=== PATIENT | male | born 1985 | race Caucasian/White ===

== ENCOUNTER 2016-11-25 07:59 | Observation (INO) | payer OTHER ==
--- NOTE | 2016-11-25 09:14 | EDPHY ---
H & P Stated Complaint: HEMORRHOID X 1 WEEK NOT RESPONDING TO OTC CREAMS Time Seen by Provider: 11/25/16 09:00 HPI/ROS: CHIEF COMPLAINT: rectal pain HISTORY OF PRESENT ILLNESS: 31-year-old male presents emergency department complaining of rectal pain x1 week that is been significantly worsening over the last 4 days. Patient reports a history of hemorrhoids, he states he thinks it started as a hemorrhoid and then something larger grew next to it. He states the pain is worse with movement and bowel movements. He denies fevers, no nausea or vomiting. Patient reports a history of hemorrhoids that he is usually able to get to go away. Patient reports a history chronic abdominal pain for which is being worked, he has been seen by multiple gastroenterologists. REVIEW OF SYSTEMS: A comprehensive 10 point review of systems is otherwise negative aside from elements mentioned in the history of present illness. Source: Patient Exam Limitations: No limitations - Personal History Current Tetanus/Diphtheria Vaccine: Yes - Medical/Surgical History Hx Asthma: No Hx Chronic Respiratory Disease: No Hx Diabetes: No Hx Cardiac Disease: No Hx Renal Disease: No Hx Cirrhosis: No Hx Alcoholism: No Hx HIV/AIDS: No Hx Splenectomy or Spleen Trauma: No Other PMH: APPY - Social History Smoking Status: Never smoked - Physical Exam Exam: Physical Exam Gen: Alert and Oriented, NAD HEENT: PERRL, moist mucous membranes NECK: no meningismus CV: regular rate and regular rhythm PULM: CTAB, no wheezes ABDOMEN: soft, non tender to palpation, BS present RECTAL:2cm x2cm area of induration, erythema, pain, swelling at 7pm position extending into rectal vault. 1cm of surrounding erythema, no bleeding, no drainage. BACK: No CVA tenderness NEURO: Neurologically grossly intact EXTREMITIES: normal appearing SKIN: no rash or break in skin on exposed skin PSYCH: answers questions appropriately. Constitutional: Initial Vital Signs Temperature (C) 36.4 C 11/25/16 08:02 Heart Rate 107 H 11/25/16 08:02 Respiratory Rate 20 11/25/16 08:02 Blood Pressure 117/86 H 11/25/16 08:02 O2 Sat (%) 97 11/25/16 08:02 O2 Delivery Mode Room Air Allergies/Adverse Reactions: amoxicillin [Amoxicillin] Allergy (Verified 11/25/16 08:01) Penicillins Allergy (Verified 11/25/16 08:01) Home Medications: Medication Instructions Recorded Anusol 11/25/16 KLONOPIN 11/25/16 Medical Decision Making - Diagnostics Imaging: Imaging Impressions Abdomen CT 11/25/16 09:53 Impression: 1. Small perianal rim-enhancing fluid collection, possibly abscess. 2. No acute process within the intraperitoneal space. 3. Mild constipation. Otherwise, normal bowel pattern. Findings discussed with emergency department nurse, Charity Lowe, [employer] on November 25, 2016 at 1050 hours. ED Course/Re-evaluation: IV established, CBC, chemistry panel, CT abdomen pelvis with IV contrast ordered after discussing the case with Dr. Li. CBC is mildly elevated at 11.3 with a left shift. Normal chemistry panel. 920am- Dr. Li at bedside. 11am- patient back from CT scan and CT results show a perirectal abscess. Dr. Li contacted with results. 1115am-Dr. Li at bedside. He is going to take the patient to surgery. Cefoxitin has been ordered. - Data Points Laboratory Results: Laboratory Results 11/25/16 09:15 11/25/16 09:15 11/25/16 11/25/16 09:15 09:15 WBC 11.32 10^3/uL H 10^3/uL (3.80-9.50) RBC 5.23 10^6/uL 10^6/uL (4.40-6.38) Hgb 16.0 g/dL g/dL (13.7-17.5) Hct 46.4 % % (40.0-51.0) MCV 88.7 fL fL (81.5-99.8) MCH 30.6 pg pg (27.9-34.1) MCHC 34.5 g/dL g/dL (32.4-36.7) RDW 11.7 % % (11.5-15.2) Plt Count 231 10^3/uL 10^3/uL (150-400) MPV 11.7 fL fL (8.7-11.7) Neut % (Auto) 86.8 % H % (39.3-74.2) Lymph % (Auto) 8.7 % L % (15.0-45.0) Crockett % (Auto) 3.6 % L % (4.5-13.0) Eos % (Auto) 0.2 % L % (0.6-7.6) Baso % (Auto) 0.4 % % (0.3-1.7) Nucleat RBC Rel Count 0.0 % % (0.0-0.2) Absolute Neuts (auto) 9.83 10^3/uL H 10^3/uL (1.70-6.50) Absolute Lymphs (auto) 0.98 10^3/uL L 10^3/uL (1.00-3.00) Absolute Monos (auto) 0.41 10^3/uL 10^3/uL (0.30-0.80) Absolute Eos (auto) 0.02 10^3/uL L 10^3/uL (0.03-0.40) Absolute Basos (auto) 0.05 10^3/uL 10^3/uL (0.02-0.10) Absolute Nucleated RBC 0.00 10^3/uL 10^3/uL (0-0.01) Immature Gran % 0.3 % % (0.0-1.1) Immature Gran # 0.03 10^3/uL 10^3/uL (0.00-0.10) Sodium 141 mEq/L mEq/L (134-144) Potassium 4.0 mEq/L mEq/L (3.5-5.2) Chloride 100 mEq/L mEq/L (97-110) Carbon Dioxide 25 mEq/l mEq/l (22-31) Anion Gap 16 mEq/L mEq/L (8-16) BUN 13 mg/dL mg/dL (7-23) Creatinine 0.8 mg/dL mg/dL (0.7-1.3) Estimated GFR > 60 Glucose 99 mg/dL mg/dL (70-100) Calcium 9.8 mg/dL mg/dL (8.5-10.4) Medications Given: Discontinued Medications Sodium Chloride (Ns) 1,000 mls @ 0 mls/hr IV ONCE ONE PRN Reason: Wide Open Stop: 11/25/16 09:20 Last Admin: 11/25/16 09:15 Dose: 1,000 mls Sodium Chloride (Ns) 1,000 mls @ 0 mls/hr IV ONCE ONE PRN Reason: Wide Open Stop: 11/25/16 09:58 Last Admin: 11/25/16 09:58 Dose: 1,000 mls Departure - Departure Disposition: To OP Cath/Surgery Clinical Impression: Perirectal abscess Condition: Fair Referrals: NONE *PRIMARY CARE P,. [Primary Care Provider] - As per Instructions
[2016-11-25] MEDS ORDERED: NS 1,000 ML IV ONE ×2 (09:19→09:57)
[2016-11-25 09:23] LABS: % IMMATURE GRANULYOCYTES 0.3 % (0.0-1.1); ABSOLUTE IMMATURE GRANULOCYTES 0.03 10^3/uL (0.00-0.10); ADD DIFF? NO; ADD MORPH? NO; ADD SCAN? NO; ATYPICAL LYMPHOCYTE FLAG 0 (0-99); FRAGMENT RBC FLAG 0 (0-99); HEMATOCRIT 46.4 % (40.0-51.0); LEFT SHIFT FLG 0 (0-99); LIPEMIA HEMOLYSIS FLAG 90 (0-99); MEAN CELL HEMOGLOBIN 30.6 pg (27.9-34.1); MEAN CELL HEMOGLOBIN CONCENTR. 34.5 g/dL (32.4-36.7); MEAN CELL VOLUME 88.7 fL (81.5-99.8); MEAN PLATELET VOLUME 11.7 fL (8.7-11.7); PLATELET CLUMPS FLAG 10 (0-99); PLATELET COUNT 231 10^3/uL (150-400); RED BLOOD CELL COUNT 5.23 10^6/uL (4.40-6.38); RED CELL DISTRIBUTION WIDTH 11.7 % (11.5-15.2)
[2016-11-25 09:54] LABS: ANION GAP 16 mEq/L (8-16); CALCIUM 9.8 mg/dL (8.5-10.4); CARBON DIOXIDE 25 mEq/l (22-31); CHLORIDE 100 mEq/L (97-110); CREATININE 0.8 mg/dL (0.7-1.3); GLOMERULAR FILTRATION RATE > 60; GLUCOSE 99 mg/dL (70-100); SODIUM 141 mEq/L (134-144)
[2016-11-25] MEDS ORDERED: IOPAMIDOL (ISOVUE-300) 100 ML BTL IV ONE (10:22)
[2016-11-25] MEDS ORDERED: cefOXitin SODIUM 2 GM in D5W 100 ML IV ONE (11:23)
[2016-11-25] MEDS ORDERED: HYDROmorphONE/DILAUDID 1 MG/ML SYR ONE (11:25)
[2016-11-25] MEDS ORDERED: ONDANSETRON 4 MG/2 ML VIAL IVP PRN (11:30)
[2016-11-25] MEDS ORDERED: NS 1,000 ML IV SCH (11:30)
[2016-11-25] MEDS ORDERED: HYDROmorphONE/DILAUDID 1 MG/ML SYR IVP PRN (11:30)
[2016-11-25 11:37] LABS: COLOR YELLOW; LEUKOCYTE ESTERASE,URINE NEGATIVE (NEGATIVE); NITRITE,URINE NEGATIVE (NEGATIVE)
[2016-11-25] MEDS ORDERED: BACITRACIN 50,000 UNITS/10 ML SYR IRR ONE (11:49)
--- NOTE | 2016-11-25 12:08 | GHP ---
[f rep st] PREOP HISTORY AND PHYSICAL ADMITTING DIAGNOSIS: Perirectal abscess (right, posterior-lateral). HISTORY: The patient is a 31-year-old male, who has had a history of passing a hard stool 2 weeks ago. He was okay for 1 week, but has had increasing perianal discomfort, prompting his visit to the hospital. He has had hemorrhoids, which he has dealt with before, nonoperatively. In addition, he has had digestive issues for the past 2-1/2 years. He has not had a colonoscopy or a followup CT. He has no diarrhea or bloody stools. He has as a gene positive for celiac disease, but no IgA elevation. He does have abdominal pains. Not is made, he had an appendectomy in 2012. CT at that time did not show any signs of Crohn disease. He last had a meal of celery, prunes, and rice cakes at 9 p.m. He had a little celery this morning and a sip water. SOCIAL HISTORY: He smoked from ages 13 to 19 at 1/2 a pack a day. He does take Kratom leaf for depression and anxiety. He does not drink alcohol. He has an allergy to penicillin as manifested by "puffiness." MEDICATIONS: He is not currently taking any medications. PAST SURGICAL HISTORY: He has had his wisdom teeth extracted. PAST MEDICAL HISTORY: There is no history of rheumatic fever, tuberculosis, hepatitis, HIV, or transfusions. REVIEW OF SYSTEMS: Otherwise, quite negative, without limitation of his activities activities, or steroid use. FAMILY HISTORY: His mother is 57 years old. She had TB and was treated for TB. She does have an issue with alcohol. His father at 75 of an accident. He did have several coronary stents, but never had a myocardial infarction. He did have bladder cancer. The patient is preceded in by 2 paternal half-sisters, one 47, and one 44. He was followed in by a full sister, who is 31. All his all sisters are healthy. There are no bleeding disorders, clotting disorders, difficulty with anesthesia in the patient or the family. PHYSICAL EXAMINATION: GENERAL APPEARANCE: He is awake, alert. He is in mild distress, and it is uncomfortable for him to sit. LYMPH NODES: There is no cervical, supraclavicular, axillary, or inguinal lymphadenopathy. NECK: There are no carotid bruits. Thyroid is not enlarged. LUNGS: Clear to auscultation. CARDIAC: S1, S2 normal. NEUROLOGIC: No focal lateralizing findings. ABDOMEN: Soft and nontender. EXTREMITIES: Unremarkable. There is a large right posterior lateral abscess. RECTAL: Examination performed by the ER physician emergency veterinary assistant does show no pain above the anal verge. DIAGNOSTIC DATA: His white count is 11.3 with 87% neutrophils. Hematocrit is 46. His basic metabolic panel is unremarkable. Note is made the creatinine is 0.8. The BUN is 13. A CT is performed, which shows no supralevator extension of the abscess and, more importantly, no evidence of Crohn's. RECOMMENDATIONS: I recommended that I approach this at surgery under anesthetic. An I and D of the abscess will be carried out. A search will be carried out for a proximal fistulous connection. If that is found, a fistulectomy will be performed. The patient understands that transit fecal incontinence may be a problem with a fistulectomy, and there is a very small chance of needing to repair that for him. /[id number]/MODL MTDD
[2016-11-25] MEDS ORDERED: ONDANSETRON 4 MG/2 ML VIAL IVP ONE (12:10)
[2016-11-25] MEDS ORDERED: fentaNYL 250 MCG/5 ML INJ ONE (13:15)
[2016-11-25] MEDS ORDERED: PROPOFOL 200 MG/20 ML VIAL ONE (13:15)
[2016-11-25] MEDS ORDERED: DEXAMETHASONE 4 MG/ML VIAL ONE ×2 (13:16)
[2016-11-25] MEDS ORDERED: METOCLOPRAMIDE 10 MG/2 ML VIAL ONE (13:16)
[2016-11-25] MEDS ORDERED: MIDAZOLAM 2 MG/2 ML VIAL ONE (13:16)
[2016-11-25] MEDS ORDERED: LIDOCAINE 2% 100 MG/5 ML SYR ONE (13:19)
[2016-11-25] MEDS ORDERED: KETOROLAC 30 MG/1 ML SDV ONE (13:21)
--- NOTE | 2016-11-25 14:23 | POSTOPPROG ---
Post Op Note Date of Operation: 11/25/16 Surgeon: Ej Li Anesthesia: GET(General Endotracheal) Pre-op Diagnosis: perirectal abscess, possible fistula Post-op Diagnosis: perirectal abscess and fistula Indication: perirectal abscess, possible fistula Procedure: I&D jennifer rectal abscess with fistulectomy Findings: perirectal abscess and fistula Inf/Abcess present in the surg proc area at time of surgery?: Yes Depth: Superfical (Skin SQ) EBL: Minimal Total fluids administered: 2550 since ER admission Complications: none Specimen(s): culture
[2016-11-25] MEDS ORDERED: fentaNYL 100 MCG/2 ML INJ ONE (14:38)
--- NOTE | 2016-11-25 15:03 | GOP ---
[f rep st] OPERATIVE REPORT DATE OF OPERATION: 11/25/2016 SURGEON: Ej Li MD PREOPERATIVE DIAGNOSIS: Perirectal abscess with possible fistulous connection to the anal canal. POSTOPERATIVE DIAGNOSIS: Perirectal abscess with fistulous connection to the anal canal. PROCEDURE PERFORMED: Incision and drainage of perirectal abscess, culture, fistulectomy. FINDINGS: Perirectal abscess with fistulous connection to the anal canal ( posterior midline). DESCRIPTION OF PROCEDURE: The patient was placed on the operating table in supine position. After induction of adequate general endotracheal anesthesia, he was placed in lithotomy position using candy-cane stirrups. The peritoneum was carefully clipped, prepped, and draped. A surgical time-out was carried out and agreed to by all members of the operative team. A posterolateral (6:30 to 7:30 o'clock) perirectal abscess was identified. The rectal speculum was placed. In the posterior midline, an area of purulent drainage was identified consistent with a fistulous tract to the abscess cavity. an elliptical incision was made over the more distal aspect of the abscess cavity to preserve some perianal skin. Purulent drainage was obtained. This was cultured. After the elliptical skin incision had been removed, and the tract well exposed, a probe was easily passed through the proximal fistulous connection. The intervening tissue was divided down to the probe using cautery. Part of the external sphincter was divided in this process. Hemostasis was found to be excellent. The perineum was carefully cleansed. Rectal whistle pack (Gelfoam wrapped around a section of a 26-[place] Luna catheter tube) was placed in the rectal speculum and left in the anal canal. A suture of #2-0 silk was placed through the rectal whistle tube and tied to create a retrieval device. 4 x 4's were placed on either side of the tube and 4 x 4's were placed over the end of the tube. An ABD was positioned. 3-inch silk tape was used to secure the dressing in place. The patient was transferred to recovery in stable and satisfactory condition. /[id number]/MODL MTDD
[2016-11-25] MEDS: ACETAMINOPHEN 500 MG TAB PO SCH ×2 (15:57→21:10)
[2016-11-25] MEDS: cefOXitin SODIUM 1 GM in D5W 50 ML IV SCH ×2 (17:43→23:01)
[2016-11-25] MEDS: KETOROLAC 30 MG/1 ML SDV IVP SCH ×2 (17:45→23:02)
[2016-11-25 20:05] VITALS: RESP 14
[2016-11-25] MEDS: POLYETHYLENE GLYCOL 3350 17 GM PKT PO SCH (21:09)
[2016-11-26] MEDS: ACETAMINOPHEN 500 MG TAB PO SCH (05:44)
[2016-11-26] MEDS: KETOROLAC 30 MG/1 ML SDV IVP SCH (05:45)
[2016-11-26] MEDS: cefOXitin SODIUM 1 GM in D5W 50 ML IV SCH (05:45)
[2016-11-26 07:44] VITALS: O2SAT 97
[2016-11-26] MEDS: POLYETHYLENE GLYCOL 3350 17 GM PKT PO SCH (09:47)
--- NOTE | 2016-11-26 10:28 | SOAPPROG ---
SOAP Progress Note Assessment/Plan: POD#1 11/26/2016 Assessment: Doing quite well! Continence maintained.Pain controlled Plan: Discharge Subjective: No complaints Objective: Vital Signs Temp Pulse Resp BP Pulse Ox 36.5 C 72 14 94/57 L 97 11/26/16 07:43 11/26/16 07:43 11/26/16 07:43 11/26/16 07:43 11/26/16 07:43 Microbiology 11/25/16 13:50 Gram Stain - Final Other - Anaerobic Tube/Swab 11/25/16 11/26/16 11/27/16 05:59 05:59 05:59 Intake Total 1400 Output Total 2 Balance 1398 Physical Exam - Physical Exam General Appearance: alert, no apparent distress Abdomen: normal bowel sounds Male Genitalia: deferred Rectal: other (No bleeding, wound clean, granulation tissue begining!) Back: Normal inspection Skin: normal color, warm/dry Neuro/Psych: alert, normal mood/affect, oriented x 3 ICD10 Worksheet Patient Problems: Problems Problem Status Onset Perirectal abscess Acute
--- NOTE | 2016-11-26 11:40 | GDS ---
[f rep st] DISCHARGE SUMMARY DISCHARGE DIAGNOSIS: Perirectal abscess with [id number]. PROCEDURE: I & D of perirectal abscess and fistulectomy. CONDITION AT DISCHARGE: Improved. DISPOSITION: Home. DIET: He is to eat a regular diet but to increase his fiber intake. He will take MiraLAX 2 tablespoons twice a day. He will avoid constipating foods such as bananas, rice, applesauce, and cheese. HOME GOING MEDICATIONS: Tylenol 1000 mg every 8 hours by schedule, Toradol 10 mg p.o. q.6 hours by schedule and Dilaudid 2-4 mg every 4 hours as needed for breakthrough pain. He will continue his home medications of vitamin D 3000 units daily, Klonopin 2.5 mg p.o. at bedtime p.r.n. and his herbal supplements. He is to follow up with Dr. Smith' office in 2 weeks. He instructed to clean his perineum with a handheld shower head 3 times a day and after every bowel movement for the 1st week; twice a day and after every bowel movement for the 2nd week postop and 1 time a day and after bowel movements the 3rd week postop. He is to cleanse his perineum after bowel movements with baby wipes if the shower is not available. He understands there is a small chance of fecal incontinence that might require the repair of the partially divided external sphincter but so far, he has maintained his continence. He will use a feminine panty liner as needed to prevent soiling his clothing and he is to pass gas only on the barry. HOSPITAL COURSE: He was taken to the operating room where the above-mentioned surgery was carried out. His rectal whistle pack was removed 3 hours after surgery. He has cleansed his perineum several times and early granulation tissue was noted. There was a culture obtained in case we have any further problems with infection. He is not going to be continuing antibiotics at this point. /[id number]/MODL MTDD
[2016-11-26 12:15] VITALS: BP 114/74; PULSE 76; TEMP 98.2
== END 2016-11-26 12:40 | disposition home or self-care (01) ==
LOC: F3E 15:17
PROVIDERS: ADMIT Surgery; ATTEND Surgery
PROC: 0D9P7ZZ Drainage of Rectum, Via Natural or Artificial Opening (ICD-10-PCS; principal; 2016-11-25 13:24)
DX: K60.5 Anorectal fistula (principal); Z88.0 Allergy status to penicillin; K59.00 Constipation, unspecified
CPT/HCPCS: 46045; 74177; 96360; 96361; 99285; G0378; 82947-QW; J0694; J0697; J1100; J1170; J1885; J2001; J2250; J2405; J2704; J2765; J3010; Q9967